=== PATIENT | female | born 1960 | race Caucasian/White ===

== ENCOUNTER 2022-06-05 15:21 | Emergency (ER) | payer OTHER, SELFPAY ==
--- NOTE | ~2022-06-05 | XR_ITS ---
EXAMINATION: XR foot LT min 3V DATE: 06/05/2022 15:59 INDICATION: Left foot pain, initial encounter TECHNIQUE: Dorsoplantar, lateral, and 2 oblique views of the left foot were obtained. COMPARISON: None. FINDINGS: There is an acute, transverse, closed fracture in the proximal neck of the fifth metatarsal . Alignment is normal. No additional fracture is identified. Soft tissue swelling is seen near the fr acture. There is mild osteoarthritis of multiple interphalangeal joints and at the first metatarsopha langeal joint. Dorsal and plantar calcaneal enthesophytes are noted. IMPRESSION: 1. Acute nondisplaced transverse fracture in the proximal neck of the fifth metatarsal. Reviewed, dictated and finalized at location A. IMPRESSION: 1. Acute nondisplaced transverse fracture in the proximal neck of the fifth met atarsal.
[2022-06-05 15:28] VITALS: BP 161/77; PULSE 71; RESP 20; TEMP 36.5; O2SAT 98
--- NOTE | 2022-06-05 16:12 | ED.LOWEXIN ---
HPI - Extremity Injury (Lower) General Chief Complaint: Extremity Injury, Lower Stated Complaint: Left foot injury Time Seen by Provider: 06/05/22 15:40 Source: patient, RN notes reviewed and old records reviewed Mode of arrival: ambulatory Limitations: no limitations History of Present Illness HPI Narrative: 62 year old female who presents to [facility] care with complaints of injury to her left foot today when she was leaving work at 1415 today. She states that she was walking and her foot rolled outward and she heard a pop with pain to the lateral aspect of her left foot. Patient has noted tenderness to lateral left foot with swelling present. Patient rates her pain 5/10 ice applied to foot in clinic and elevated. MD complaint: foot injury Onset (ago): hour(s) (at 1415 today) Injury: Left: foot (lateral aspect) Severity scale (1-10): 5 Related Data Home Medications Medication Instructions Recorded Confirmed escitalopram oxalate 10 mg tablet 10 mg PO DAILY 06/05/22 06/05/22 lisinopril 5 mg tablet 5 mg PO DAILY 06/05/22 06/05/22 simvastatin 40 mg tablet 40 mg PO DAILY 06/05/22 06/05/22 Allergies Allergy/AdvReac Type Severity Reaction Status Date / Time meperidine [From Demerol] AdvReac Nausea and Verified 06/05/22 16:06 Vomiting Review of Systems Review of Systems: CONSTITUTIONAL: Denies fever, chills, or sweats. EYES: Denies visual changes, redness, or discharge. ENT: Denies rhinorrhea, congestion, sore throat, or otalgia. CARDIOVASCULAR: Denies chest pain, palpitations, or edema. RESPIRATORY: Denies cough or dyspnea. GASTROINTESTINAL: Denies abdominal pain, nausea, vomiting, or diarrhea. GENITOURINARY: Denies dysuria or hematuria. SKIN: Denies rash or itching. MUSCULOSKELETAL: Denies back pain,positive for left foot pain lateral aspect, or myalgia. NEUROLOGIC: Denies headache, numbness, or weakness. PSYCHIATRIC: positive for history of anxiety or depression. All systems reviewed & are unremarkable except as noted in HPI and below PMFSH Past Medical History Medical History (Updated 06/09/22 @ 12:26 by Maria Teresa Rayo NP) Anxiety COVID-19 Elevated serum cholesterol Hypertension Social History Social History (Updated 06/09/22 @ 12:31 by Maria Teresa Rayo NP) Smoking status: Never smoker Alcohol intake: current Alcohol use details: rare social Substance use type: does not use Living arrangements: with family Gender identity (if verbalized by the patient): Female Comments at time of signature, agree with nursing documentation of past medical, surgical, social and family history. There is no relevant family history pertinent to presenting complaint. Exam Narrative: GENERAL: Well-appearing, well-nourished, and in mild acute distress. HEAD: Normocephalic, atraumatic. EYES: PERRLA and EOMI. ENT: Nares clear, no rhinorrhea or epistaxis. Mucous membranes moist.TM's normal with good light reflex, throat pink with no lesions or swelling NECK: Supple.no lymphadenopathy CHEST: Clear to auscultation. No respiratory distress.SAO2 98% on room air HEART: Regular rate and rhythm. No murmur heard. Normal peripheral pulses. ABDOMEN: Soft, nontender, nondistended, normal active bowel sounds. EXTREMITIES: Normal range of motion except for left foot lateral aspect 5th toe region. Edema noted to left foot with pain lateral aspect of 5th toe region, circulation and sensation intact to left foot with voiced pain SKIN: Warm, dry, no rash. NEURO: No focal deficits. Alert and oriented x3. Course Course Level of Care: Express Care Visit Vital Signs Vital signs: Vital Signs Temperature 36.5 C 06/05/22 15:28 Pulse Rate 71 06/05/22 15:28 Respiratory Rate 20 06/05/22 15:28 Blood Pressure 161/77 H 06/05/22 15:28 Pulse Oximetry 98 06/05/22 15:28 Oxygen Delivery Room Air 06/05/22 15:28 Temperature 36.5 C 06/05/22 15:28 Pulse Rate 71 06/05/22 15:28 Respiratory Rate 20 06/05/22 15:28
== END 2022-06-05 16:50 | disposition home or self-care (01) ==
PROVIDERS: Emergency Provider Registered Nurse
DX: S92.355A Nondisplaced fracture of fifth metatarsal bone, left foot, initial encounter for closed fracture (principal); X50.9XXA Other and unspecified overexertion or strenuous movements or postures, initial encounter; Y93.K1 Activity, walking an animal; F41.9 Anxiety disorder, unspecified; I10 Essential (primary) hypertension; Z86.16 Personal history of COVID-19
CPT/HCPCS: 29515; 73630; 99214; G0463